=== PATIENT | male | born 2000 | race Caucasian/White ===

== ENCOUNTER → 2020-05-11 | Outpatient (CLI) | payer SELFPAY ==
[2020-05-11 16:06] LABS: Mucous, Urine 0 SEEN /hpf (<or=2+); Red Blood Cells-Urine 0 SEEN /hpf (0-5); Squamous Epithelial Cells - UA 0 SEEN /hpf (0-5); White Blood Cells 0 SEEN /hpf (0-5)
[2020-05-11 16:30] LABS: Absolute Lymphocyte Count 2.09 X10^3/uL (0.83-4.51); Absolute Neutrophil Count 2.5 X10^3/uL (2.0-7.7); Basophil# 0.02 X10^3/uL; Basophil% 0.4 % (0-1); Eosinophil# 0.11 X10^3/uL; Eosinophils% 2.1 % (0-5); Hematocrit 40.6 % (40-54); Hemoglobin 13.2 g/dL (13.0-16.5); Lymphocyte # 2.09 X10^3/ul (4.0); Lymphocyte % 39.6 % (19-41); Mean Corp Hgb Conc 32.5 g/dL (32-36); Mean Corpuscular Hgb 28.9 pg (27.0-32.0); Mean Corpuscular Volume 88.8 fL (80-94); Monocyte# 0.56 X10^3/uL; Monocyte% 10.6 % (0-10); NRBC Flagged by Analyzer 0 % (0-5); Neutrophil # 2.49 X10^3/uL (2.7-7.7); Neutrophil % 47.1 % (47-70); Platelet Count 180 K/mm3 (150-450); RBC Distribution Width CV 11.8 % (11.6-14.6); RBC Distribution Width SD 37.9 fl (35.1-43.9); Red Blood Count 4.57 M/mm3 (4.6-6.2); White Blood Count 5.3 K/mm3 (4.4-11.0)
[2020-05-11 16:36] LABS: Color, Urine Yellow (Yellow); Glucose, Dipstick 250 mg/dl (Normal); Ketone-Dipstick Negative (Negative); Leukocyte Esterase-Dipstick Negative /ul (Negative); Nitrite-Dipstick Negative (Negative); Occult Blood-Urine 25 /ul (Negative); Protein-Dipstick 30 mg/dl (Negative); Specific Gravity, Urine 1.015 (1.002-1.030); Urine Bilirubin Dipstick Negative (Negative); Urine Clarity Sl. Cloudy (Clear); Urine Urobilinogen Normal (Normal); Urine pH 6.5 (5.0 - 8.0)
[2020-05-11 16:42] LABS: Albumin, Serum 4.4 g/dL (3.2-5.0); BUN 23 mg/dL (7-18); BUN/Creat Ratio 15.9 RATIO (10-20); Calcium,Total 9.5 mg/dL (8.5-10.1); Chloride 103 mmol/L (98-107); Creatinine, Serum 1.45 mg/dL (0.70-1.30); EST Glomerular Filtration Rate 66 mL/min (>60); Est Glom Filt Rate - Afr Amer 79 mL/min (>60); Glucose 90 mg/dL (74-106); Phosphorus 3.1 mg/dL (2.5-4.9); Potassium 3.8 mmol/L (3.5-5.1); Sodium Level 138 mmol/L (136-145)
[2020-05-11 16:49] LABS: Vitamin D,25 Hydroxy 42.6 ng/mL
[2020-05-11 16:56] LABS: PTHIN 25.5 pg/mL (18.4-80.1)
[2020-05-11 16:58] LABS: Bacteria 2+ /hpf (None Seen)
== END | disposition home or self-care (01) ==
PROVIDERS: PCP Pediatrics; Referring Provider Pediatrics Pediatric Nephrology; Visit Provider Pediatrics Pediatric Nephrology
DX: N18.9 Chronic kidney disease, unspecified (principal)
CPT/HCPCS: 80069; 81001; 82306; 83970; 85025

== ENCOUNTER 2024-10-12 07:09 | Emergency (ER) | payer BC, SELFPAY ==
[2024-10-12 07:12] VITALS: BP 120/74; PULSE 83; RESP 16; TEMP 36.4; O2SAT 99; BMI 21.4
[2024-10-12 07:15] VITALS: BP 120/74; PULSE 83; RESP 16; TEMP 36.4; O2SAT 97
--- NOTE | 2024-10-12 07:26 | EDS_ITS ---
HPI History of Present Illness HPI Narrative: Patient presents with left knee pain that began yesterday. Patient states it became worse this morning. Patient states it went away yesterday but returned again today. Patient describes it as sharp and aching. Patient states it is over the anterior and posterior aspects of the left knee. Patient states pain is worse with ambulation and better with rest. Patient did have a recent craniotomy for brain cancer and is concerned that this could be from a DVT. Cedric hurtado denies any chest pain or shortness of breath. Chief Complaint: Lower Extremity Injury Informant: patient Onset/Context/Timing Onset: Yesterday Context: Gradual Onset Timing: Intermittent Quality of Pain: Sharp and Aching Location: Left knee Worsened by: Ambulation Relieved by: Rest Associated Symptoms Associated Symptoms: Negative for Parasthesia, Weakness or Loss of Funtion PFSH PFSH Medical History (Updated 10/12/24 @ 08:[address] Leif Astorga DO) Chronic kidney disease Renal cancer Brain cancer Allergy/AdvReac Type Severity Reaction Status Date / Time ibuprofen (From Motrin) AdvReac Severe kidneys Verified 10/12/24 07:11 promethazine (From Phenergan) AdvReac Severe kidneys Verified 10/12/24 07:11 lorazepam (From Ativan) AdvReac Intermediate manic Verified 10/12/24 07:11 Surgical History (Updated 10/12/24 @ 08:[address] Leif Astorga DO) History of nephrectomy History of brain surgery Social History Smoking Status: Never smoker ROS ROS ED Constitutional Constitutional ED: Denies chills or fever(s) Eyes Eyes: Denies blurry vision or change in vision ENT ENT ED: Denies rhinorrhea or sore throat Cardiovascular Cardiovascular: Denies chest pain or palpitations Respiratory/Chest Respiratory/Chest: Denies cough or dyspnea Gastrointestinal Gastrointestinal: Denies nausea or vomiting Genitourinary Genitourinary ED: Denies dysuria or hematuria Musculoskeletal Musculoskeletal: Denies back pain or neck pain Integumentary Reports rash; Denies abscess Neurologic Neurologic: Denies headache(s) or weakness Allergic/Immunologic Allergic/Immunologic ED: Denies mouth swelling or urticaria EXAM Physical Exam Const Vital Signs: 10/12/24 07:12 10/12/24 07:15 10/12/24 08:03 Temperature 97.6 F L 97.6 F L 97.6 F L Temperature Source Oral Temporal Temporal Pulse Rate 83 83 83 Respiratory Rate 16 16 16 Blood Pressure 120/74 120/74 120/74 Blood Pressure Mean 89 89 89 Pulse Ox 99 97 99 Oxygen Delivery Method Room Air Room Air Room Air Positive well nourished and well developed General Appearance ED: well developed and NAD HEENT Reports moist mucous membranes Neck full ROM and supple Extremity Extremity Narrative: There is tenderness over the anterior aspect of the left knee. There is no joint effusion noted. There is no edema or ecchymosis. There is no bony crepitus or step-off noted. There is good range of motion. There is no laxity appreciated. Varus and valgus stress test were negative. Isra's test was negative. There is mild tenderness with patellar grinding. There is no calf tenderness or edema noted. Posterior tibial pulses are equal bilaterally. Neuro oriented x3, CN's II-XII intact bilaterally, moves all extremities and no sensory deficits noted Sensorium / Orientation: alert Motor Exam: strength 5/5 throughout Psych mental status grossly normal MDM MDM MDM Narrative Medical decision making narrative: Differential diagnosis includes DVT, Mora's cyst, and arthritis. Venous duplex of the left lower extremity will be obtained to assess for DVT. Radiography Diagnostic Testing: Venous duplex of the left lower extremity was obtained. There is no evidence of DVT. Treatment and Re-Evaluation Narrative: Patient was advised of his findings. Patient was instructed to ice and elevate the left knee. Patient was instructed to continue his prednisone as prescribed. Patient was instructed to follow-up with his primary care physician in 5 to 7 days. Patient and family understood and were agreeable with the plan. All questions were answered. Discharge Plan Triage Chief Complaint: Lower Extremity Injury ED Provider: Leif Astorga Dx/Rx/DC Orders Clinical Impression: Acute pain of left knee, Brain cancer Instructions: ED Pain, Acute, Uncertain Cause Primary Care Provider: Anais Blackmon NP Referrals: Care Physician,Katja Primary [Non-Staff] - Anais Blackmon NP, MARKETING PROPOSAL SPECIALIST-C [Primary Care Provider] - 5-7 Days Print Language: Turkmen Disposition Disposition: Home, Self Care
--- NOTE | 2024-10-12 07:38 | VDLE_ITS ---
Reason For Study Reason For Study: Pain RIGHT LEFT CFV is compressible, spontaneous, phasic, competent GSV is normal. and demonstrates normal augmentation. CFV is compressible, spontaneous, phasic, competent, Procedure and demonstrates normal augmentation. This is a venous duplex using B-mode, color flow and FV is compressible, spontaneous, phasic, competent spectral Doppler. and demonstrates normal augmentation. Exam performed portable in ED. POP V is compressible, spontaneous, phasic, competent A preliminary report was called and/or faxed to Leif and demonstrates normal augmentation. DO Gauri. T/P Trunk is compressible. PTV is compressible. LT PerV is compressible. VL/Venous Duplex US, Unilateral Interpretation Summary Deep veins of the left lower extremity are patent and compressible segmentally. There is no evidence of left lower extremity deep vein thrombosis. The left great saphenous vein appears patent an d compressible segmentally. Ordering Physician: Leif Astorga Performed By: Fiona Gramajo RVT and Student
[2024-10-12 08:03] VITALS: BP 120/74; PULSE 83; RESP 16; TEMP 36.4; O2SAT 99
[2024-10-12 08:54] VITALS: BP 158/68; PULSE 78; RESP 16; TEMP 36.6; O2SAT 100
== END 2024-10-12 08:56 | disposition home or self-care (01) ==
PROVIDERS: Emergency Provider Emergency Medicine; PCP Nurse Practitioner Primary Care; Visit Provider Emergency Medicine
DX: M25.562 Pain in left knee (principal); C71.9 Malignant neoplasm of brain, unspecified; N18.9 Chronic kidney disease, unspecified; Z90.5 Acquired absence of kidney
CPT/HCPCS: 93971; 99282

== ENCOUNTER 2024-11-30 11:00 | Outpatient (RCR) | payer BC, SELFPAY ==
--- NOTE | 2024-08-22 13:06 | HP.PTEVAL ---
Patient's Visit Information Visit Information Visit Information: BESS VENTURA is a 23 year old M referred to Physical Therapy by NIA BARRAGAN with a diagnosis of 08/05/24- Craniotomy for tumor resection. 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 Very physically active went to the gym daily- left leg issues and started to go to the right- started to get concerned in May- messaged MD-he had kidney cancer a long time ago with a craniotomy- and he had a meningioma left over that was slowly growing- checked in with her all the labs were good- then he met with another MD at - he suggested an MRI and they found the swelling/tumor in the brain. 08/05/24- Craniotomy for tumor resection. They released him home to his parents- and he has been there since. The last 3 days have been the best so far. He has pressure in his head but not painful- he has 40 jeanne. He has numbness in both feet and midway down his lower leg- its getting better. The first few days he used a walker and he has not been using it since. He went to the indoor track and walked a mile and a half and it wiped him out but felt good. No N/V. He is currently taking steroids, kepra, stomach med and enalapril for his kidney. He has a follow up on the . They gave him bridges, clam shells, walking, leg lifts, marching. Goals: balance, endurance, functional mobility- return to normal activities. Sleep: light sleeper but not too bad. No pain. No falls. Occasionally light headed. Objective Objective: Posture: forward head, rounded shoulders Gait: ataxic- slow- no AD. HR/TR: able with UE A- decreased HR and TR by 50% bilateral ROM: WNL in all planes Strength: Core: fair minus, Hip: 4-/5 throughout, Knee: 4/5, Ankle: 4/5 Sensation: diminished below the knees Balance/Special Test Scores Functional Gait Assessment Score: 15 % Disability: 50.0000 CATSIB Score (Max score 120 seconds): 85 Lower Extremity Functional Score: 18 Goals Goal 1:: Patient will be I with HEP and progression Goal Time Frame: 4-6 Weeks Goal 2:: Patient will ambulate >300 feet with a normalized gait pattern Goal Time Frame: 4-6 Weeks Goal 3:: Patient will improve FGA to 22 for safety Goal Time Frame: 4-6 Weeks Goal 4:: Patient will report 80% improvement Goal Time Frame: 4-6 Weeks Rehabilitation Potential Physical Therapy Diagnosis: Patient presents with hypomobility- he has decreased proprioception, strength, flex and muscular endurance leading to decreased ability to perform ADL's. Rehabilitation Potential: Good Anticipated Interventions Patient/Client Instruction: Educate patient on: Benefits of Fitness Program Therapeutic Exercise to Include: Strength training, Endurance training, Balance training, Coordination, Agility training, Body mechanics, Postural training, Flexibilty training, Gait and locomotor training, Neuromotor development, Dynamic Lumbar Stabilization and Scapular Strength/Stabilization For the Purpose of:: To improve muscle performance and motor function Functional Training to Include: ADL Training and Gait training Manual Therapy Techniques to Include: Soft tissue mobilization Text: Thank you for the opportunity to evaluate your patient. For Medicare and Medicare HMO plans, please review the plan of care and approve it. It will need to be FAXED BACK to us at [phone] for Medicare purposes. For Medicare only, by signing this I certify the plan of care. Please let me know if there are questions or concerns regarding this plan of care. Physician Signature: Date:
--- NOTE | 2024-08-23 11:57 | HP.OTEVAL_ITS ---
Patient's Visit Information Visit Information Visit Information: BESS VENTURA is a 23 year old M, referred to Occupational Therapy by NIA BARRAGAN, with a diagnosis of Brain Mass (G93.89). Date of Evaluation: 08/23/24 Occupational Therapist: July Ramirez Subjective Subjective: This 23 year old male arrives with dx of brain mass. MRI 08/05 reveal's brain mass craniotomy was complete 08/08/24 [facility]. pt symptoms started with weakness and numbness in BLEs. Pt was in bed for approx 3- 4 days after surgery-- had very minimal therapy at hospital. pt returned home with parents where he did his own exercises. 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 worked in [employer] at [employer]. Pt is R hand dominant. pt does feel endurance as well as overall strength and coordination has been impacted by brain mass. Objective Objective/Observation: pt arrives able to walk from [facility] to OT section with cane ROM ROM Comments: BUE WFL Strength Shoulder: L shoulder flexion 9.6# R shoulder flexion 9.3# Elbow: L bicep 18.1# R bicep 11.9# L tricep 14.7# R tricep 14.1# Turbine Subassembler: R and L 40# Lateral Pinch: L 5# R 8# Edema Other: none Sensation Sensation Comments: L hand slight numbness seeme weintstein monofilament 2.83-- normal Nine Hole Peg Right: 29 Left: 35 Quick DASH-Disab of Arm,Shoulder& Hand Quick DASH Score: 50.0000 Goals Goal:: pt will improve B shoulder flexion strength by 5# or more in order to return to PLOF Pt will improve B bicep strength by 5# or more in order to return to PLOF Pt will improve B tricep strength by 5# or more in order to return to PLOF Pt will improve B gas line installer supervisor strength by 10# or more in order to return to PLOF Goal:: pt will improve 9 hole peg score B hands by 5 seconds or more (R hand 29 sec L hand 35 sec) in order to return to PLOF Goal:: pt will improve quick dash score by 10 points or more (50.0) in order to improve use of UEs during day to day tasks Goal:: pt will improve R and L UE reflex evident by ability to catch bounced call one hand 5/5 trials Rehabilitation General Assessment: This 23 year old male arrives with dx of brain mass resulting in decreased B UB strength, sustained aerobic capacity, coordination as well as impaired reflex impacting ability to perform day to day tasks at prior level of function. This pt currently has a 10# lifting restriction a well as a no bending restriction at this time until he is 4 week post op. pt would benefit from OT services 1x a week for 4-6 weeks for progression in strengthening as well as coordination and improved reflexes to return to PLOF. Rehabilitation Potential: Good Anticipated Interventions Anticipated Interventions: A/AAROM/PROM, Strengthening, Joint Protection/Energy Conservation, Fine Motor Coord/Lalo, Neuro Reeducation, Education re Diagnosis and Home Program Visit Plan Frequency: 1x/Week Duration: 4-6 Weeks General Plan: AROM/AAROM/PROM strengthening FMC reflex training HEP implementation and modifications TEXT: Thank you for the opportunity to evaluate your patient. For Medicare and Medicare HMO plans, please review the plan of care and approve it. It will need to be FAXED BACK to us at [phone] for Medicare purposes. Please let me know if there are questions or concerns regarding this plan of care. Physician Signature: Date:
--- NOTE | 2024-10-05 12:18 | HP.PTREVAL ---
Re-Evaluation Intro: NIA BARRAGAN, It has been my pleasure to treat BESS VENTURA over the last 12 visits for 08/05/24- Craniotomy for tumor resection. Please see the progress note below for an update on the physical therapy plan of care! Subjective Subjective: Doing good ..Radiation some Objective Objective/Function: * Patient will benefit from skilled PT due to complexity issues will benefit from skilled PT to improve balance /strength/endurance* normal terra balance: good Stairs: alternating steps MMT: (peak force) quads right 20.9 ,left 21.8 ,hip flexion left 20.8 ,left 22.1 hamstrings left 14,8 ,right 14.6 Plan Plan Plan: REQUESTING 8 MORE VISITS Patient wants gym program Focus on balance and strength. Craniotomy 08/05/24. 09/27 - # lifting restriction and no bending over has been extended to 6 weeks post-op. Lifting restriction 30# after 6 weeks per patient Balance/Gait/Functional tests Balance/Special Test Scores Functional Gait Assessment Score: 15 % Disability: 50.0000 CATSIB Score (Max score 120 seconds): 85 Lower Extremity Functional Score: 18 Goals Goals Goal 1:: Patient will be I with HEP and progression Goal Time Frame: 4-6 Weeks Goal Progress: Progressing Goal 2:: Patient will ambulate >300 feet with a normalized gait pattern Goal Time Frame: 4-6 Weeks Goal Progress: Goal Met Goal 3:: Patient will improve FGA to 22 for safety Goal Time Frame: 4-6 Weeks Goal Progress: Goal Met Goal 4:: Patient will report 90% improvement( new goal) Goal Time Frame: 4-6 Weeks Goal 5:: Patient to improve strength peak force BLE quads/hams/hip by 10# to improve function Goal Time Frame: 4-6 Weeks Anticipated Interventions Anticipated Interventions Patient/Client Instruction: Educate patient on: Benefits of Fitness Program Therapeutic Exercise to Include: Strength training, Endurance training, Balance training, Coordination, Agility training, Body mechanics, Postural training, Flexibilty training, Gait and locomotor training, Neuromotor development, Dynamic Lumbar Stabilization and Scapular Strength/Stabilization For the Purpose of:: To improve muscle performance and motor function Functional Training to Include: ADL Training and Gait training Manual Therapy Techniques to Include: Soft tissue mobilization Re-Evaluation Ending Re-evaluation ending: Please do not hesitate to contact me at [phone] by phone or if you have questions or concerns regarding this new plan of care! Sincerely, Mohan Madrid PT, Cert MDT, OCS
--- NOTE | 2024-11-30 12:14 | HP.OTDCSUM_ITS ---
Discharge Summary D/C Summary: It has been my pleasure to treat BESS VENTURA under orders from NIA BARRAGAN, for the diagnosis of Brain Mass (G93.89) for a total of 12 visit(s). Please see the following information for a summary of their discharge status. Overall Improvement % Improvement: 85 Objective Objective/Function: see goals below for updated measurements this date Goals Patient Goals: Regain Strength, Improve Fine Motor Skills, Resume Former Household Responsibilities (Cooking,Cleaning,Yard, etc.) and Resume Hobbies Goal:: pt will improve B shoulder flexion strength by 5# or more in order to return to PLOF L shoulder flexion 15.6# R shoulder flexion 15.6# GOAL MET Pt will improve B bicep strength by 5# or more in order to return to PLOF L bicep 20.9# R bicep 19.6# GOAL MET Pt will improve B tricep strength by 5# or more in order to return to PLOF L tricep 13.7# R tricep 11.7# Pt will improve B software product specialist strength by 10# or more in order to return to PLOF L and R hand 50# GOAL MET Goal:: pt will improve 9 hole peg score B hands by 5 seconds or more (R hand 29 sec L hand 35 sec) in order to return to PLOF 9 hole peg L 29 sec 9 hole peg R 22 sec GOAL MET Goal:: pt will improve quick dash score by 10 points or more (50.0) in order to improve use of UEs during day to day tasks 4.5 GOAL MET Goal:: pt will improve R and L UE reflex evident by ability to catch bounced call one hand 5/5 trials GOAL MET Plan Plan: strengthening-- no longer has 10# restriction to gradually increase weight with gym equipment extension of session to 1x a week for 5 weeks for focus on progressing in gym equipment and gym log D/C Information Discharge Comments: This 24 year old male referred to OT with dx of brain mass. This pt has made progress throughout POC including improved strength, coordination as well as reflex reactions. Pt demonstrates improved overall aerobic capacity to task and has not finished his treatments. plan is for pt to continue his gym program on own that has been provided to him for ongoing results. pt is in agreeance and discharge from OT services this date. d/c sentence: If there are questions or concerns regarding this patient's occupational therapy, please fell free to call me at [phone]. Thank you for the referral of this patient. Sincerely, July Ramirez
--- NOTE | 2024-11-30 12:14 | HP.OT.NRP ---
Patient Information Patient Information: BESS VENTURA was seen in my office for initial evaluation on 08/23/24. The following Plan of Care was established for this patient: POC Established Initial Frequency: 1x/Week Initial Duration: 4-6 Weeks Plan: strengthening-- no longer has 10# restriction to gradually increase weight with gym equipment extension of session to 1x a week for 5 weeks for focus on progressing in gym equipment and gym log Anticipated Interventions Anticipated Interventions: A/AAROM/PROM, Strengthening, Joint Protection/Energy Conservation, Fine Motor Coord/Lalo, Neuro Reeducation, Education re Diagnosis and Home Program Last Seen Last Seen: This patient was last seen in our office 11/30/24. Pertinent comments regarding their Occupational therapy will appear below: This 24 year old male referred to OT with dx of brain mass. This pt has made progress throughout POC including improved strength, coordination as well as reflex reactions. Pt demonstrates improved overall aerobic capacity to task and has not finished his treatments. plan is for pt to continue his gym program on own that has been provided to him for ongoing results. pt is in agreeance and discharge from OT services this date. At this point I will be discontinuing this patient from occupational therapy. I would be happy to see this patient again in the future if found appropriate by the physician. Thank you! July Ramirez
== END 2024-11-30 12:37 | disposition home or self-care (01) ==
LOC: OT 11:00
DX: R26.9 Unspecified abnormalities of gait and mobility (principal); G93.89 Other specified disorders of brain
CPT/HCPCS: 97110; 97162; 97166; 97530